=== PATIENT | male | born 1955 | race Caucasian/White ===

== ENCOUNTER 2019-05-02 06:08 | Inpatient (IN) ==
[2019-05-02 07:06] LABS: BASO# 0.01 X1000 (0.0-0.2); BASO% 0.1 % (0.0-0.8); EOS# 0.04 X1000 (0.0-0.7); EOS% 0.4 % (0.0-10.0); HEMATOCRIT 49.5 % (42.0-52.0); HEMOGLOBIN 17.4 g/dL (14.0-18.0); IMM GRAN# 0.02 X1000 (0.0-0.04); IMM GRAN% 0.2 % (0.0-0.5); LYMPH# 0.71 X1000 (1.2-3.4); LYMPH% 6.3 % (20.5-51.1); MCH 33.5 PG (27-31); MCHC 35.2 g/dL (33-37); MCV 95.2 FL (81-99); MONO# 1.11 X1000 (0.11-0.59); MONO% 9.8 % (1.7-9.3); NEUT# 9.41 X1000 (1.4-6.5); NEUT% 83.2 % (42.2-75.2); PLT 165 X1000 (130-400); RDW 12.1 % (11.5-14.5)
[2019-05-02 07:28] LABS: ESTIMATED GFR > 60
--- NOTE | 2019-05-02 07:29 | EKG Report ---
Test Performed on : 05/02/2019 06:23:12 AM Test Reason : pain Blood Pressure : / mmHG Vent. Rate : 104 BPM Atrial Rate : 081 BPM P-R Int : 000 ms QRS Dur : 096 ms QT Int : 364 ms P-R-T Axes : 000 -04 009 degrees QTc Int : 478 ms Atrial fibrillation. with rapid ventricular response. Incomplete right bundle branch block Nonspecific ST and T wave abnormality Abnormal ECG When compared with ECG of 13-MAR-2012 11:43, T wave inversion no longer evident in Anterolateral leads Unconfirmed Result
[2019-05-02 07:30] LABS: AGAP 23; ALB/GLOB RATIO 1.7; ALBUMIN 4.6 g/dL (3.5-5.0); ALKALINE PHOSPHATASE 79 U/L (32-122); BUN 14 mg/dL (8-22); CHLORIDE 89 mmol/L (98-107); COSMO 272; CREATININE 0.9 mg/dL (0.7-1.2); GLUCOSE 154 mg/dL (70-104); GOT 23 U/L (10-34); GPT 15 U/L (10-44); LIPASE 62 U/L (13-60); POTASSIUM 3.9 mmol/L (3.5-5.1); SODIUM 134 mmol/L (136-145); TCO2 22 mmol/L (25-35); TOTAL BILIRUBIN 1.65 mg/dL (0.20-1.00); TOTAL PROTEIN 7.3 g/dL (6.3-8.3)
[2019-05-02] MEDS ORDERED: DILAUDID IV ONE ×2 (07:31→09:37)
[2019-05-02] MEDS ORDERED: ZOFRAN IV ONE (07:31)
--- NOTE | 2019-05-02 07:32 | PROVIDER DOCUMENTATION ---
HPI-Abdominal Pain/GI Problem - General Chief Complaint: Abdominal Pain Stated Complaint: UPPER ABD PAIN,DIZZINESS Time Seen by Provider: 05/02/19 07:13 Source: patient Allergies/Adverse Reactions: Patient Allergies Allergy/AdvReac Type Severity Reaction Status Date / Time No Known Allergies Allergy Verified 05/02/19 06:29 Home Medications: Home Medication List Medication Instructions Recorded Confirmed Last Taken Type Lisinopril [Zestril] 10 mg PO BID 03/13/12 05/02/19 03/13/12 08:00 History Pradaxa 150 mg PO DAILY 03/13/12 05/02/19 03/13/12 12:00 History Amlodipine Besylate 5 mg PO DAILY 05/02/19 Unknown History Hydrocodone/Acetaminophen 10 mg PO TID 05/02/19 05/02/19 Unknown History [Hydrocodone-Acetamin 10-300 mg] Meloxicam [Mobic] 7.5 mg PO DAILY 05/02/19 05/02/19 Unknown History Metoprolol Succinate [Toprol Xl] 200 mg PO DAILY 05/02/19 05/02/19 Unknown History - History of Present Illness-ABD Nature of Presenting Problems: 64 y/o WM c/o upper abdomin epigastric pain for the last 2.5 days. He relates that he also stopped his pradaxa for the last 2 days. Pt has hx of a fib and is currently in a fib. Progress - PLAN OF CARE/RESULTS Progress/Plan/Lab Results: Vital Signs - 8 hr 05/02/19 06:10 Temperature 97.7 F Pulse Rate 100 H Respiratory Rate 20 Blood Pressure 142/89 O2 Sat by Pulse Oximetry 95 Laboratory Results - last 24 hr 05/02/19 05/02/19 06:42 06:42 WBC 11.30 H RBC 5.20 Hgb 17.4 Hct 49.5 MCV 95.2 MCH 33.5 H MCHC 35.2 RDW Std Deviation 12.1 Plt Count 165 MPV 11.0 H Immature Gran % (Auto) 0.2 Neut % (Auto) 83.2 H Lymph % (Auto) 6.3 L Craven % (Auto) 9.8 H Eos % (Auto) 0.4 Baso % (Auto) 0.1 Immature Gran # (Auto) 0.02 Neut # (Auto) 9.41 H Lymph # (Auto) 0.71 L Craven # (Auto) 1.11 H Eos # (Auto) 0.04 Baso # (Auto) 0.01 Estimated GFR/1.73 m2 > 60 Orders Category Date Time Status Saline Loc DIRECTED Care 05/02/19 06:15 Active NPO Diet 05/02/19 06:15 Active CBC WITH ELECTRONIC DIFF [HEME] Stat Lab 05/02/19 06:42 Completed COMPREHENSIVE METABOLIC PANEL [CHEM] Stat Lab 05/02/19 06:42 Results LIPASE [CHEM] Stat Lab 05/02/19 06:42 Results TROPONIN T Stat Lab 05/02/19 06:17 Received URINALYSIS W/POSS RFLX CULT [URINALYSIS] Stat Lab 05/02/19 06:15 Uncollected EKG [EKG] Stat Ther 05/02/19 06:14 Ordered EKG [EKG] Stat Ther 05/02/19 06:16 Ordered Result Diagrams: 05/02/19 06:42 05/02/19 06:42 Departure - Departure Referrals and Follow-Ups: None,PCP [Primary Care Provider] -
--- NOTE | 2019-05-02 07:52 | Diag Imaging Result Doc PS360 ---
CHEST-1 VIEW - 05/02/2019 INDICATION: atypical chest pain COMPARISON: 03/13/2012 FINDINGS: There is stable cardiomegaly. Pulmonary vascularity is grossly normal. No infiltrates or edema. No large pleural effusion. IMPRESSION: Mild cardiomegaly. Electronically signed by Yoni Martinez 05/02/2019 7:50 AM
--- NOTE | 2019-05-02 08:36 | Diag Imaging Result Doc PS360 ---
EXAM: CT ABD/PELVIS W/IV CONT ONLY 05/02/2019 HISTORY: epigastric abdo pain. TECHNIQUE: This exam was performed using automated exposure control, adjustment of mA or kV according to patient size, and/or use of iterative reconstruction technique. COMMENT: There is no evidence of acute disease in the visualized portion of the chest. There are no previous abdominal studies available for comparison. The abdominal aorta is partially calcified but not distended and the mesenteric and renal arteries are patent. There is no evidence of cholelithiasis. There is no evidence of hydronephrosis. There is an apparent stone in the lower pole of the left kidney measuring almost 5 mm in diameter. There are granulomata in the spleen. The spleen is not enlarged. The adrenal glands are not enlarged. There is stranding in the fat surrounding the pancreatic head. The common bile duct is distended measuring almost 10 mm in diameter. There is no definite evidence of a stone in the distal duct however there are calcifications in the pancreatic head. There is dilatation of the pancreatic duct in the tail proximal to a larger calcification seen best on image 51 of the portal venous phase. The pancreatic tail is atrophic in appearance. There is some stool in the colon. The small bowel is not distended. There is no evidence of significant adenopathy. Pelvis: There is diverticulosis in the distal descending and sigmoid colon without evidence of active diverticulitis. There is no evidence of free fluid. The urinary bladder and prostate are not enlarged. The appendix is normal in appearance. There is a right-sided hip prosthesis and degenerative changes in the left hip. There is vacuum phenomenon in the sacroiliac joints. There is degenerative disc and facet disease in the lumbar spine and there has been previous fusion in the lower lumbar spine with laminectomy at L4. IMPRESSION: Acute on chronic pancreatitis. Dilatation of the proximal pancreatic duct and the common bile duct. Left nephrolithiasis. Electronically signed by John Parra 05/02/2019 8:34 AM
[2019-05-02 09:13] LABS: URINE SOURCE CLEAN CATCH
[2019-05-02 09:14] LABS: BILIRUBIN URINE NEGATIVE (NEGATIVE); BLOOD URINE TRACE (NEGATIVE); COLOR YELLOW; GLUCOSE URINE NEGATIVE (NEGATIVE); KETONE URINE NEGATIVE (NEGATIVE); LEUKOCYTES URINE NEGATIVE (NEGATIVE); NITRITE URINE NEGATIVE (NEGATIVE); PROTEIN URINE 100 mg/dL (NEGATIVE); TURBIDITY URINE CLEAR (CLEAR); UROBILINOGEN URINE NORMAL (NORMAL)
[2019-05-02 09:14] LABS: INR 1.04; PROTIME 13.8 Seconds (11.0-16.0)
[2019-05-02 09:15] LABS: PTT 35.5 Seconds (22.3-41.8)
[2019-05-02 09:15] LABS: UR EPITHELIAL CELLS <10 /HPF (<10); URINE BACTERIA NEGATIVE /HPF; URINE RBC <10 /HPF (<10); URINE WBC <10 /HPF (<10)
[2019-05-02 09:30] LABS: SP GRAVITY URINE < 1.005
[2019-05-02] MEDS ORDERED: LOVENOX 1 MG/KG SUBQ ONE (09:50)
--- NOTE | 2019-05-02 10:10 | PROVIDER DOCUMENTATION ---
This chart was entered by Cece Chase Scribe, acting as scribe for Stone Osorio MD. HPI-Abdominal Pain/GI Problem - General Chief Complaint: Abdominal Pain Stated Complaint: UPPER ABD PAIN,DIZZINESS Time Seen by Provider: 05/02/19 07:13 Source: patient Allergies/Adverse Reactions: Patient Allergies Allergy/AdvReac Type Severity Reaction Status Date / Time No Known Allergies Allergy Verified 05/02/19 06:29 Home Medications: Home Medication List Medication Instructions Recorded Confirmed Last Taken Type Lisinopril [Zestril] 10 mg PO BID 03/13/12 05/02/19 03/13/12 08:00 History Pradaxa 150 mg PO DAILY 03/13/12 05/02/19 03/13/12 12:00 History Amlodipine Besylate 5 mg PO DAILY 05/02/19 Unknown History Hydrocodone/Acetaminophen 10 mg PO TID 05/02/19 05/02/19 Unknown History [Hydrocodone-Acetamin 10-300 mg] Meloxicam [Mobic] 7.5 mg PO DAILY 05/02/19 05/02/19 Unknown History Metoprolol Succinate [Toprol Xl] 200 mg PO DAILY 05/02/19 05/02/19 Unknown History - History of Present Illness-ABD Nature of Presenting Problems: 64 yom presents ot the ed with c/o epigastric pain with n/v x2 days. pt sts pain is worsening since onset and on wexam has mild epigastric tenderness Abdominal Pain Onset Location: reports: epigastric Pain Radiation: reports: no radiation Quality of Pain: reports: aching, cramping Severity in ED: reports: moderate Onset/Duration: reports: 2 days ago Timing: reports: still present, getting worse Activities at Onset: reports: light activity Exposure to sick contacts?: No Modifying Factors: improves with: nothing Associated Symptoms: reports: nausea, vomiting. denies: back/neck pain, chest pain, diarrhea, fever/chills, shortness of breath Last BM: last night Dark Stools Present?: reports: none noticed Rectal Bleeding: reports: none # of Diarrhea Episodes: 0 Rectal Pain: reports: none # of Vomiting Episodes: 4 Bruising or Bleeding Gums?: No Similar Symptoms Previously?: No Recently seen or treated by another doctor?: No Review of Systems - Adult - REVIEW OF SYSTEMS - ADULT Constitutional: reports: see HPI. denies: chills, fever Eyes: reports: no symptoms reported Ears, Nose, Mouth & Throat: reports: no symptoms reported Cardiovascular: reports: see HPI. denies: chest pain, palpitations, syncope Respiratory: reports: see HPI. denies: cough, shortness of breath, wheezing Gastrointestinal: reports: see HPI, abdominal pain, nausea, vomiting. denies: diarrhea Genitourinary: reports: no symptoms reported, see HPI Musculoskeletal: reports: see HPI. denies: back pain, neck pain Integumentary: reports: no symptoms reported, see HPI Neurological: reports: see HPI. denies: dizziness/vertigo, headache/migraines Psychiatric: reports: no symptoms reported, see HPI Endocrine: reports: no symptoms reported, see HPI Hematologic/Lymphatic: reports: no symptoms reported Allergic/Immunologic: reports: no symptoms reported All Other Systems: Reviewed and Negative Past History - Adult - PAST MEDICAL HISTORY-ADULT Review of Records: reports: Nursing Assessment Review, Medications Reviewed, Social history reviewed & non-contributory. Physical Exam-General - PHYSICAL EXAM-ADULT Initial Vital Signs Reviewed: Yes - CONSTITUTIONAL General Appearance: appears well, alert, mild distress - EYES Eyes: PERRL/EOMI, pink conjunctivae - HEAD, EARS, NOSE, MOUTH & THROAT HENMT: moist mucous membranes, normal ENT inspection - NECK Neck: non-tender, full range of motion, supple, normal inspection - RESPIRATORY Respiratory: chest non-tender, lungs clear, normal breath sounds - CARDIOVASCULAR Cardiovascular: normal peripheral pulses, irregularly irregular (in afib has been unable to take afib medications) - GASTROINTESTINAL (ABDOMEN) Abdominal Exam: normal bowel sounds, soft, tenderness (epigastric). negative: distended, guarding, rigid - LYMPHATIC Lymphatic: no adenopathy - MUSCULOSKELETAL Back Exam: normal inspection, no CVA tenderness, no vertebral tenderness Extremity: normal range of motion, non-tender, normal gait, normal inspection - SKIN Integumentary: normal color, normal turgor - NEUROLOGIC Neurologic: grossly normal - PSYCHIATRIC Psych/Mental Status: normal mood/affect, normal thought content, normal thought process, oriented x 3 Progress - PLAN OF CARE/RESULTS Progress/Plan/Lab Results: Vital Signs - 8 hr 05/02/19 06:10 Temperature 97.7 F Pulse Rate 100 H Respiratory Rate 20 Blood Pressure 142/89 O2 Sat by Pulse Oximetry 95 Laboratory Results - last 24 hr 05/02/19 05/02/19 05/02/19 06:17 06:17 06:42 WBC 11.30 H RBC 5.20 Hgb 17.4 Hct 49.5 MCV 95.2 MCH 33.5 H MCHC 35.2 RDW Std Deviation 12.1 Plt Count 165 MPV 11.0 H Immature Gran % (Auto) 0.2 Neut % (Auto) 83.2 H Lymph % (Auto) 6.3 L Gregg % (Auto) 9.8 H Eos % (Auto) 0.4 Baso % (Auto) 0.1 Immature Gran # (Auto) 0.02 Neut # (Auto) 9.41 H Lymph # (Auto) 0.71 L Gregg # (Auto) 1.11 H Eos # (Auto) 0.04 Baso # (Auto) 0.01 PT 13.8 INR 1.04 PTT (Actin FS) 35.5 Sodium Potassium Chloride Carbon Dioxide Anion Gap BUN Creatinine Estimated GFR/1.73 m2 BUN/Creatinine Ratio Glucose Calculated Osmolality Calcium Total Bilirubin AST ALT Alkaline Phosphatase Troponin T < 0.010 Total Protein Albumin Globulin Albumin/Globulin Ratio Lipase Urine Source Urine Color Urine Turbidity Urine pH Ur Specific Lincoln Urine Protein Ur Glucose (Stick) Ur Ketones (Stick) Urine Blood Urine Nitrite Urine Bilirubin Urobilinogen Dipstick Urine Leukocytes Urine WBC (Auto) Urine RBC (Auto) U Epithel Cells (Auto) Urine Bacteria (Auto) 05/02/19 05/02/19 06:42 09:02 WBC RBC Hgb Hct MCV MCH MCHC RDW Std Deviation Plt Count MPV Immature Gran % (Auto) Neut % (Auto) Lymph % (Auto) Gregg % (Auto) Eos % (Auto) Baso % (Auto) Immature Gran # (Auto) Neut # (Auto) Lymph # (Auto) Gregg # (Auto) Eos # (Auto) Baso # (Auto) PT INR PTT (Actin FS) Sodium 134 L Potassium 3.9 Chloride 89 L Carbon Dioxide 22 L Anion Gap 23 BUN 14 Creatinine 0.9 Estimated GFR/1.73 m2 > 60 BUN/Creatinine Ratio 16 Glucose 154 H Calculated Osmolality 272 Calcium 10.0 Total Bilirubin 1.65 H AST 23 ALT 15 Alkaline Phosphatase 79 Troponin T Total Protein 7.3 Albumin 4.6 Globulin 2.7 Albumin/Globulin Ratio 1.7 Lipase 62 H Urine Source CLEAN CATCH Urine Color YELLOW Urine Turbidity CLEAR Urine pH 7.0 Ur Specific Lincoln < 1.005 Urine Protein 100 A Ur Glucose (Stick) NEGATIVE Ur Ketones (Stick) NEGATIVE Urine Blood TRACE A Urine Nitrite NEGATIVE Urine Bilirubin NEGATIVE Urobilinogen Dipstick NORMAL Urine Leukocytes NEGATIVE Urine WBC (Auto) <10 Urine RBC (Auto) <10 U Epithel Cells (Auto) <10 Urine Bacteria (Auto) NEGATIVE Orders Category Date Time Status Saline Loc DIRECTED Care 05/02/19 06:15 Active NPO Diet 05/02/19 06:15 Active CHEST-1 VIEW [RAD] Stat Exams 05/02/19 07:[address] ABD/PELVIS W/IV CONT ONLY [CT] Stat Exams 05/02/19 07:30 Completed US GB < RUQ (LIMITED) [US] Stat Exams 05/02/19 09:38 Ordered CBC WITH ELECTRONIC DIFF [HEME] Stat Lab 05/02/19 06:42 Completed CHOLESTEROL [LIPIDS] Stat Lab 05/02/19 10:00 Uncollected COMPREHENSIVE METABOLIC PANEL [CHEM] Stat Lab 05/02/19 06:42 Completed LIPASE [CHEM] Stat Lab 05/02/19 06:42 Completed PROTIME WITH INR [COAG] Stat Lab 05/02/19 06:17 Completed PTT [COAG] Stat Lab 05/02/19 06:17 Completed TROPONIN T Stat Lab 05/02/19 06:17 Completed URINALYSIS W/POSS RFLX CULT [URINALYSIS] Stat Lab 05/02/19 09:02 Completed Enoxaparin 1 mg/kg [Lovenox 1 mg/kg] Med 05/02/19 09:50 Discontinued 1 each SUBQ NOW ONE Hydromorphone [Dilaudid] Med 05/02/19 07:31 Discontinued 0.5 mg IV NOW ONE Hydromorphone [Dilaudid] Med 05/02/19 09:37 Discontinued 0.5 mg IV NOW ONE Ondansetron [Zofran] Med 05/02/19 07:31 Discontinued 4 mg IV NOW ONE EKG [EKG] Stat Ther 05/02/19 06:14 Ordered EKG [EKG] Stat Ther 05/02/19 06:16 Draft Result Diagrams: 05/02/19 06:42 05/02/19 06:42 - REASSESSMENT Reassessment #1 Time Reassessed: 09:46 Status: improving - XRAY 1 XRAY: Bilateral XRAY Study: Chest Impression: See EMR Report (CHEST-1 VIEW - 05/02/2019 INDICATION: atypical ham[place] st pain COMPARISON: 03/13/2012 FINDINGS: There is stable cardiomegaly. Pulmonary vascularity is grossly normal. No infiltrates or edema. No large pleural effusion. IMPRESSION: Mild cardiomegaly. Electronically signed by Yoni Martinez 05/02/2019 7:50 AM 05/02/19 2400 Interpreting Physician: Yoni Martinez MD Dictated Date/Time: 05/02/19 1807 cc: Stone Osorio MD; None,PCP) - CT/MRI 1 CT Study: Abdomen, Pelvis Impression: See EMR Report (EXAM: CT ABD/PELVIS W/IV CONT ONLY 05/02/2019 HIST ORY: epigastric abdo pain. TECHNIQUE: This exam was performed using automated exposure control, adjustment of mA or kV according to patient size, and/or use of iterative reconstruction technique. COMMENT: There is no evidence of acute disease in the visualized portion of the chest. There are no previous abdominal studies available for comparison. The abdominal aorta is partially calcified but not distended and the mesenteric and renal arteries are patent. There is no evidence of cholelithiasis. There is no evidence of hydronephrosis. There is an apparent stone in the lower pole of the left kidney measuring almost 5 mm in diameter. There are granulomata in the spleen. The spleen is not enlarged. The adrenal glands are not enlarged. There is stranding in the fat surrounding the pancreatic head. The common bile duct is distended measuring almost 10 mm in diameter. There is no definite evidence of a stone in the distal duct however there are calcifications in the pancreatic head. There is dilatation of the pancreatic duct in the tail proximal to a larger calcification seen best on im age 51 of the portal venous phase. The pancreatic tail is atrophic in appearance. There is some stool in the colon. The small bowel is not distended. There is no evidence of significant adenopathy. Pelvis: There is diverticulosis in the distal descending and sigmoid colon without evidence of active diverticulitis. There is no evidence of free fluid. The urinary bladder and prostate are not enlarged. The appendix is normal in appearance. There is a right-sided hip prosthesis and degenerative changes in the left hip. There is vacuum phenomenon in the sacroiliac joints. There is degenerative disc and facet disease in the lumbar spine and there has been previous fusion in the lower lumbar spine with laminectomy at L4. IMPRESSION: Acute on chronic pancreatitis. Dilatation of the proximal pancreatic duct and the common bile duct. Left nephrolithiasis. Electronically signed by John Parra 05/02/2019 8:34 AM 05/02/19 0834 Interpreting Physician: John Parra MD Dictated Date/Time: 05/02/19 0828 cc: Stone Osorio MD; None,PCP) - ULTRASOUND (By Radiology) 1 US Study: Gallbladder Impression: See EMR Report (US GB < RUQ (LIMITED) - 05/02/2019 INDICATION: ruq pain TECHNIQUE: COMPARISON: CT from 05/02/2019 FINDINGS: The gallbladder is somewhat distended measuring about 12 x 4.2 cm. No gallstones, wall thickening, or surrounding free fluid. The common bile duct is dilated measuring about 9 mm. No shadowing stones. The pancreas is mostly obscured. No fluid collections. The right kidney is normal. Aorta, IVC, and main portal vein are patent. IMPRESSION: 1. Distended gallbladder with dilation of the common bile duct. This may indicate a distal obstruction. 2. Pancreas is obscured. Electronically signed by Yoni Martinez 05/02/2019 10:39 AM 05/02/19 1039 Interpreting Physician: Yoni Martinez MD Dictated Date/Time: 05/02/19 1036 cc: Stone Osorio MD; None,PCP) - CONSULTS/PCP/HOSPITALIST Notification #1 *Consult/PCP/Hospitalist*: Hospitalist Dr Hickman / Shahnaz ARCHIBALD Time Discussed: 10:01 Consult Disposition: Will see in ED, Admit Departure - Departure Date of Disposition Decision: 05/02/19 Time of Disposition Decision: 10:07 DIAGNOSIS: Acute pancreatitis, Elevated bilirubin Disposition: ADMITTED INPATIENT 09 Certified Medical Emergency: Emergent Condition: Fair Referrals and Follow-Ups: None,PCP [Primary Care Provider] - - Critical Care Note This patient required my direct & personal management of CC.: No Attestation - Physician/ GALDINO Attestation Patient care was provided by Advanced Practice Provider:: No The physician spent face to face time with patient:: Yes Advanced Practice Provider documentation review:: Supervising physician onsite and consulted in the evaluation and care of this patient. The physician did have a face to face encounter with the patient. This chart was documented by the indicated scribe, (Cece Chase Scribe) and accurately reflects the services I performed and decisions made by me, Stone Osorio MD, as attested by the provider's signature.
[2019-05-02] MEDS ORDERED: TYLENOL PO PRN (10:22)
[2019-05-02] MEDS ORDERED: ZOFRAN IV PRN (10:22)
--- NOTE | 2019-05-02 10:42 | Diag Imaging Result Doc PS360 ---
US GB < RUQ (LIMITED) - 05/02/2019 INDICATION: ruq pain TECHNIQUE: COMPARISON: CT from 05/02/2019 FINDINGS: The gallbladder is somewhat distended measuring about 12 x 4.2 cm. No gallstones, wall thickening, or surrounding free fluid. The common bile duct is dilated measuring about 9 mm. No shadowing stones. The pancreas is mostly obscured. No fluid collections. The right kidney is normal. Aorta, IVC, and main portal vein are patent. IMPRESSION: 1. Distended gallbladder with dilation of the common bile duct. This may indicate a distal obstruction. 2. Pancreas is obscured. Electronically signed by Yoni Martinez 05/02/2019 10:39 AM
[2019-05-02 11:14] LABS: HEMOGLOBIN A1C 5.5 % (4.8-6.0)
[2019-05-02] MEDS ORDERED: LOVENOX SUBQ ONE (11:15)
[2019-05-02 11:33] LABS: FREE T4 1.63 ng/dL (0.93-1.70); TSH 2.56 uIUmL (0.27-4.20)
[2019-05-02] MEDS: NS 1,000 ML IV SCH ×2 (11:53→21:22)
[2019-05-02] MEDS: MORPHINE IV PRN ×3 (12:25→22:34)
[2019-05-02] MEDS: SODIUM CHLORIDE 0.9% INJ PRN ×2 (12:26→18:00)
[2019-05-02] MEDS: PHENERGAN IV PRN ×2 (12:26→18:00)
--- NOTE | 2019-05-02 12:46 | HISTORY AND PHYSICAL ---
HISTORY OF PRESENT ILLNESS: Mr. Landry states that today is Wednesday and I think starting on Wednesday, he started getting nauseated, epigastric pain had just intensified, and came in. Results of workup showed he has pancreatitis. He has never had this before. He does drink heavy on the weekend but does not drink much during the week by his report. 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 Denies fever or chills. Denies any change in his medication. He has chronic lower back pain with right footdrop and he is followed mainly at [facility] in [place] for chronic pain. He has a history of hypertension, history of hypercholesterolemia. ALLERGIES: He has no known drug allergies. FAMILY HISTORY: No family history of heart problems, pancreatic problems, or renal problems that he is aware of. MEDICATIONS: At home, he is on Pradaxa 150 mg p.o. daily, amlodipine 5 mg a day, hydrocodone 10 mg t.i.d., Zestril 10 mg b.i.d., Mobic 7.5 mg a day, and Toprol-XL 200 mg p.o. daily. He is followed by Dr. White for his hypertension. PAST SURGICAL HISTORY: The only surgeries he mentioned were on his back. He has had 3 back surgeries, he said, and it sounds like decompressive surgeries. He has a right footdrop following one of his surgeries. REVIEW OF SYSTEMS: General: No weight gain or loss. No fever or chills. HEENT: Unremarkable. Respiratory: No increased work of breathing or dyspnea. Cardiovascular: No chest pain or tachy palpitations. GI and Genitourinary: No gross hematuria or dysuria. Musculoskeletal and Neurologic: No focal complaints. Endocrinologic/Hematologic: No significant history. PHYSICAL EXAMINATION: VITAL SIGNS: He is afebrile. Temperature 97.7 degrees, pulse 120, respirations 17, blood pressure 137/110. HEENT: Pupils are equal and round. LUNGS: Clear in all lung paige. CARDIOVASCULAR EXAMINATION: Regular rhythm and rate without murmur or S3. ABDOMEN: Soft, nondistended. He is tender in the epigastrium and left upper quadrant, quite tender. SKIN: Warm and dry. No rashes. Oral and nasal mucosa without any lesions. NECK: Supple without adenopathy or thyromegaly. Weight is 250 pounds, height 6 feet 3 inches. LABORATORY DATA: White count 11,300, hematocrit 49, platelet count 165,000. Sodium 134, potassium 3.9, chloride 89, BUN 15, creatinine 0.9, blood sugar 154, hemoglobin A1c 5.5, calcium is 10. AST 23, ALT was 15, alkaline phosphatase 79. Troponin was less than 0.01. Albumin 4.6. Cholesterol 213. Lipase was 62. Vitamin B12 was 407. TSH is 2.56, T4 is 1.63. Prothrombin time was 13.8, PTT 35. Urinalysis unremarkable. His chest x-ray, mild cardiomegaly. Abdominal ultrasound, pancreatitis appreciated, distended gallbladder with dilatation of common bile duct. This may indicate a distal obstruction. Abdominal and pelvic CT, acute on chronic pancreatitis, dilatation of proximal pancreatic duct, common bile duct, and left nephrolithiasis. ASSESSMENT AND PLAN: 1. Acute pancreatitis and possibly biliary. His ultrasound suggests a dilated gallbladder with dilatation of the common bile duct. We will ask general surgery to see. Dr. Roque Liang I believe is on-call today. We will hold him nothing per oral, give him some intravenous fluids and antiemetics as needed. 2. History of alcohol, sounds like it is mainly on the weekends. I think there is low potential for withdrawal symptoms but obviously discussed the need to stay off of alcohol. 3. Hypertension. We will watch his blood pressure. 4. Chronic lower back pain. Continue his current medications. Note, he is on Pradaxa 150 mg a day. I need to question him why he is on that and we will hold that for now. REVIEW OF HIS LAB: Blood counts look okay. Renal function looks good. We will give him some normal saline at 85 mL an hour. Note that his lipase was 62 which is not real impressive. cc: Kevin Hickman MD
[2019-05-02] MEDS ORDERED: SODIUM CHLORIDE 0.9% INJ SCH (14:10)
[2019-05-02 15:00] LABS: INR 1.17; PROTIME 15.1 Seconds (11.0-16.0)
[2019-05-02 15:01] LABS: PTT 43.2 Seconds (22.3-41.8)
[2019-05-02] MEDS: PROTONIX IV SCH (15:03)
[2019-05-02] MEDS: NORCO-7.5 PO PRN ×2 (15:03→21:21)
[2019-05-02] MEDS: PRINIVIL PO SCH (21:22)
[2019-05-03] MEDS: MORPHINE IV PRN ×3 (03:05→16:21)
[2019-05-03] MEDS: TOPROL XL PO SCH ×2 (03:08→09:48)
[2019-05-03] MEDS: NS 1,000 ML IV SCH ×4 (03:09→21:17)
[2019-05-03] MEDS: PROTONIX IV SCH ×2 (03:09→14:16)
[2019-05-03] MEDS: NORCO-7.5 PO PRN ×2 (03:24→21:32)
--- NOTE | 2019-05-03 03:45 | EKG Report ---
Test Performed on : 05/03/2019 03:39:39 AM Test Reason : elevated heart rate Blood Pressure : / mmHG Vent. Rate : 106 BPM Atrial Rate : 087 BPM P-R Int : 000 ms QRS Dur : 094 ms QT Int : 328 ms P-R-T Axes : 000 -04 -49 degrees QTc Int : 435 ms Atrial fibrillation. with rapid ventricular response. with premature ventricular or aberrantly conduc mary complexes. Incomplete right bundle branch block Nonspecific ST and T wave abnormality Abnormal ECG When compared with ECG of 02-MAY-2019 06:23, (Unconfirmed) Nonspecific T wave abnormality now evident in Lateral leads Confirmed by Brea VAUGHAN, Epifanio ([id number]) on 05/03/2019 8:52:09 AM
[2019-05-03 04:22] LABS: BASO# 0.02 X1000 (0.0-0.2); BASO% 0.2 % (0.0-0.8); EOS# 0.08 X1000 (0.0-0.7); EOS% 0.9 % (0.0-10.0); HEMATOCRIT 41.8 % (42.0-52.0); HEMOGLOBIN 14.9 g/dL (14.0-18.0); IMM GRAN# 0.03 X1000 (0.0-0.04); IMM GRAN% 0.3 % (0.0-0.5); LYMPH# 0.68 X1000 (1.2-3.4); LYMPH% 7.2 % (20.5-51.1); MCH 34.8 PG (27-31); MCHC 35.6 g/dL (33-37); MCV 97.7 FL (81-99); MONO# 1.24 X1000 (0.11-0.59); MONO% 13.2 % (1.7-9.3); MPV 10.8 FL (7.4-10.4); NEUT# 7.35 X1000 (1.4-6.5); NEUT% 78.2 % (42.2-75.2); PLT 146 X1000 (130-400); RBC 4.28 XMIL (4.7-6.1); RDW 12.4 % (11.5-14.5)
[2019-05-03 04:55] LABS: AGAP 18; ALB/GLOB RATIO 1.3; ALBUMIN 3.6 g/dL (3.5-5.0); ALKALINE PHOSPHATASE 60 U/L (32-122); AMYLASE 78 U/L (20-200); BUN 17 mg/dL (8-22); CALCIUM 8.9 mg/dL (8.8-10.2); CHLORIDE 95 mmol/L (98-107); COSMO 273; CREATININE 0.8 mg/dL (0.7-1.2); ESTIMATED GFR > 60; GLUCOSE 126 mg/dL (70-104); GOT 18 U/L (10-34); GPT 11 U/L (10-44); LIPASE 54 U/L (13-60); MAGNESIUM 1.6 mg/dL (1.5-2.7); POTASSIUM 4.2 mmol/L (3.5-5.1); SODIUM 135 mmol/L (136-145); TCO2 22 mmol/L (25-35); TOTAL BILIRUBIN 1.34 mg/dL (0.20-1.00); TOTAL PROTEIN 6.4 g/dL (6.3-8.3)
--- NOTE | 2019-05-03 07:21 | GENERAL SURGERY CONSULTATION ---
DATE: 05/02/2019 CHIEF COMPLAINT: Abdominal pain. REASON FOR CONSULTATION: Pancreatitis and gallstones. HISTORY OF PRESENT ILLNESS: This is a 64-year-old gentleman, who presented with a several-day history of epigastric abdominal pain radiating to his back. He said he had a similar episode in the past that resolved spontaneously. [facility] pain related to lower back and knee and hip surgeries. He does have chronic foot drop as well. He drinks a 6- pack on the weekend, but does not drink daily. He is a basin finish operator tig welder. He does smoke. Workup in the emergency department showed CT findings consistent with pancreatitis without complication, but there are calcifications to suggest a chronic process, some dilation of the pancreatic and bile duct, and ultrasound showed gallstones with a 9 mm common bile duct. PAST MEDICAL HISTORY: Chronic pain, hypertension. He takes Pradaxa for some unclear reason. PAST SURGICAL HISTORY: He has had multiple back operations resulting in footdrop, and also hip or knee replacement. FAMILY HISTORY: Significant for lung cancer. REVIEW OF SYSTEMS: A 10-point review of systems is negative unless otherwise mentioned in the HPI. PHYSICAL EXAMINATION: Vital Signs: He is afebrile, pulse 102, blood pressure 161/101, oxygen saturation 96% on room air. General: He is alert. HEENT: No scleral icterus. No cervical mass. Cardiovascular: Normal rate. Pulmonary: No increased work of breathing. Abdomen: Soft, protuberant, and obese. There is an umbilical hernia that is reducible, but subjective tenderness. No peritonitis. Integumentary: Warm and dry without jaundice. Psychiatric: Appropriate affect. Neurologic: I believe he has a left footdrop. He does have an ankle foot orthotic to assist with this. Peripheral Vascular: No lower extremity. IMAGING AND LABORATORY DATA: White count 11, hematocrit 49, platelets 165,000. INR is 1.17. Creatinine is 0.9. Bilirubin is mildly elevated at 1.65. AST, ALT, and alkaline phosphatase are normal. Troponins are normal. Lipase was mildly elevated at 62. Urinalysis with trace blood, but negative for nitrites and leukocytes. I reviewed his CT scan and his ultrasound. ASSESSMENT AND PLAN: A 64-year-old gentleman with pancreatitis, most likely gallstone in etiology. I have recommended bowel rest, intravenous fluids, and serial liver function tests and lipases. Will allow his pancreatitis episode to resolve. I do think he has some changes consistent with chronic pancreatitis, but I do not see any evidence of acute complication, necrosis, or pseudocysts. Will plan for cholecystectomy prior to discharge to hopefully prevent further episodes. I have discussed with the patient, but currently his risk of associated complication would be high in the setting of acute pancreatitis. Will follow along. I would recommend holding his Pradaxa. cc: Gaurav Liang MD
[2019-05-03] MEDS: PRINIVIL PO SCH ×2 (08:29→21:18)
[2019-05-03] MEDS: MOBIC PO SCH (08:29)
[2019-05-03] MEDS ORDERED: PRADAXA PO SCH (09:00)
--- NOTE | 2019-05-03 14:37 | GENERAL SURGERY PROGRESS NOTE ---
DATE: 05/03/2019 SUBJECTIVE: Still having quite a lot of pain overnight. He had an episode of atrial fibrillation with rapid ventricular response. OBJECTIVE: General: On exam he is alert. HEENT: No scleral icterus. Integument: No jaundice. Cardiovascular: Still seems to be in atrial fibrillation, but at a more normal rate in the 110s. Blood pressure 154/99. Abdomen: His abdomen is soft, nontender, nondistended. LABS: White count is 9, hematocrit 41, creatinine 0.8. Bilirubin is down to 1.34, AST, ALT and alkaline phosphatase are normal. Lipase is now normal at 54. ASSESSMENT/PLAN: This is a 64 year old gentleman with chronic pancreatitis with an acute exacerbation, most likely gallstone etiology, possibly component of alcohol. I will allow his current episode of pancreatitis resolve. He is still having quite a lot of pain and plan for a cholecystectomy prior to discharge to hopefully prevent further episodes. I discussed with the patient. Otherwise, will continue bowel rest, IV fluids. cc: Gaurav Liang MD
--- NOTE | 2019-05-03 17:30 | PROGRESS NOTE ---
DATE: 05/03/2019 SUBJECTIVE: Mr. Landry reports that he is a little better, a little less pain. OBJECTIVE: Vital signs: Temp is 99.0 degrees, pulse 89, respirations 12, blood pressure 154/81. HEENT: Pupils are equal and round. Lungs: Clear in all lung paige. Cardiovascular: Regular rhythm and rate without murmur or S3. Abdomen: Soft. Skin: Warm and dry. LAB: Lipase is 54, amylase is 78. Blood count 9,400, hematocrit 41, platelet count 146,000. ASSESSMENT AND PLAN: A 64-year-old gentleman with chronic pancreatitis and acute exacerbation, most likely gallstone etiology, possibly a component of alcohol. Will allow this current episode resolve. He is in quite a lot of pain. Plan is for a cholecystectomy prior to discharge. Hopefully prevent further episodes. REVIEW OF ORDERS: I do not see any change. cc: Kevin Hickman MD
[2019-05-03] MEDS: PHENERGAN IV PRN (21:32)
[2019-05-04] MEDS: PROTONIX IV SCH ×2 (02:04→14:10)
[2019-05-04] MEDS: NS 1,000 ML IV SCH ×3 (02:05→19:01)
[2019-05-04] MEDS: PHENERGAN IV PRN (06:07)
[2019-05-04 08:06] LABS: BASO# 0.03 X1000 (0.0-0.2); BASO% 0.4 % (0.0-0.8); EOS# 0.17 X1000 (0.0-0.7); EOS% 2.2 % (0.0-10.0); HEMATOCRIT 44.4 % (42.0-52.0); HEMOGLOBIN 15.1 g/dL (14.0-18.0); LYMPH# 0.91 X1000 (1.2-3.4); LYMPH% 11.6 % (20.5-51.1); MCH 33.8 PG (27-31); MCV 99.3 FL (81-99); MONO# 1.11 X1000 (0.11-0.59); MONO% 14.1 % (1.7-9.3); MPV 10.7 FL (7.4-10.4); NEUT# 5.65 X1000 (1.4-6.5); NEUT% 71.7 % (42.2-75.2); PLT 140 X1000 (130-400); RBC 4.47 XMIL (4.7-6.1); RDW 12.1 % (11.5-14.5); WBC 7.87 X1000 (4.8-10.8)
[2019-05-04 08:35] LABS: AGAP 16; ALB/GLOB RATIO 1.2; ALBUMIN 3.6 g/dL (3.5-5.0); ALKALINE PHOSPHATASE 65 U/L (32-122); BUN 17 mg/dL (8-22); CALCIUM 9.2 mg/dL (8.8-10.2); CHLORIDE 98 mmol/L (98-107); COSMO 279; CREATININE 0.8 mg/dL (0.7-1.2); ESTIMATED GFR > 60; GLUCOSE 98 mg/dL (70-104); GOT 19 U/L (10-34); GPT 11 U/L (10-44); MAGNESIUM 1.6 mg/dL (1.5-2.7); POTASSIUM 4.3 mmol/L (3.5-5.1); SODIUM 139 mmol/L (136-145); TCO2 25 mmol/L (25-35); TOTAL BILIRUBIN 1.31 mg/dL (0.20-1.00); TOTAL PROTEIN 6.5 g/dL (6.3-8.3)
[2019-05-04] MEDS: TOPROL XL PO SCH (09:02)
[2019-05-04] MEDS: PRINIVIL PO SCH ×2 (09:03→21:26)
[2019-05-04] MEDS: MOBIC PO SCH (09:03)
--- NOTE | 2019-05-04 09:52 | PROGRESS NOTE ---
DATE: 05/04/2019 SUBJECTIVE: Mr. Landry is feeling a little better, a little less pain but still pretty uncomfortable. OBJECTIVE: Temperature 97.5 degrees, remains afebrile, pulse 80, respirations 18, blood pressure 168/97. Pupils are equal and round. Lungs are clear in all lung paige. Cardiovascular Examination: Regular rhythm and rate without murmur or S3. Urine output is 2800 mL. ASSESSMENT AND PLAN: A 64-year-old gentleman with chronic pancreatitis, acute exacerbation, most likely gallstone etiology, possibly a component of alcohol. Currently in still a lot of pain. His plan is for a cholecystectomy prior to discharge so we are going to continue nothing per oral. Continue current medication. He is getting Prinivil 10 mg twice a day, Mobic 7.5 mg daily, metoprolol succinate 200 mg by mouth daily, normal saline at 125 mL an hour, Protonix 40 mg intravenous every 12 hours, and getting normal saline at 125 mL an hour. cc: Kevin Hickman MD
[2019-05-05] MEDS: PROTONIX IV SCH (02:20)
--- NOTE | 2019-05-05 02:48 | GENERAL SURGERY PROGRESS NOTE ---
DATE: 05/04/2019 SUBJECTIVE: He is still having epigastric pain radiating to his back. No fevers. OBJECTIVE: Vital signs: Pulse 85, blood pressure 157/90, oxygen saturation 98%. General: Alert. HEENT: No scleral icterus. Cardiovascular: Normal rate. Abdomen: Soft, nontender, nondistended. LABORATORY DATA: White count 7, hematocrit 44. Creatinine 0.8. Bilirubin is down 1.31, AST, ALT and alkaline phosphatase normal. ASSESSMENT/PLAN: A 64-year-old gentleman with most likely gallstone pancreatitis. He is still having some symptoms of pancreatitis, although biochemically it seems to be improving. We will plan for cholecystectomy to prevent future episodes, but we need to allow his current symptoms to resolve. He can have low volume clear liquids. We will follow him. If he is doing better tomorrow we may schedule this early next week versus allowing this to resolve and dealing with it as an inpatient. I have discussed with the patient. He understands and consents. cc: Gaurav Liang MD
[2019-05-05] MEDS: NS 1,000 ML IV SCH ×2 (03:44→09:55)
[2019-05-05 07:10] LABS: BASO# 0.04 X1000 (0.0-0.2); BASO% 0.6 % (0.0-0.8); EOS# 0.23 X1000 (0.0-0.7); EOS% 3.3 % (0.0-10.0); HEMATOCRIT 42.7 % (42.0-52.0); HEMOGLOBIN 14.6 g/dL (14.0-18.0); IMM GRAN# 0.02 X1000 (0.0-0.04); IMM GRAN% 0.3 % (0.0-0.5); LYMPH% 14.2 % (20.5-51.1); MCH 33.6 PG (27-31); MCHC 34.2 g/dL (33-37); MCV 98.4 FL (81-99); MONO# 1.22 X1000 (0.11-0.59); MONO% 17.4 % (1.7-9.3); MPV 10.7 FL (7.4-10.4); NEUT# 4.51 X1000 (1.4-6.5); NEUT% 64.2 % (42.2-75.2); PLT 149 X1000 (130-400); RBC 4.34 XMIL (4.7-6.1); WBC 7.02 X1000 (4.8-10.8)
[2019-05-05 07:53] LABS: AGAP 14; ALBUMIN 3.2 g/dL (3.5-5.0); ALKALINE PHOSPHATASE 62 U/L (32-122); BUN 19 mg/dL (8-22); CALCIUM 9.4 mg/dL (8.8-10.2); CHLORIDE 97 mmol/L (98-107); COSMO 275; CREATININE 0.8 mg/dL (0.7-1.2); ESTIMATED GFR > 60; GLUCOSE 109 mg/dL (70-104); GOT 16 U/L (10-34); GPT 12 U/L (10-44); MAGNESIUM 1.5 mg/dL (1.5-2.7); POTASSIUM 4.2 mmol/L (3.5-5.1); SODIUM 136 mmol/L (136-145); TCO2 25 mmol/L (25-35); TOTAL BILIRUBIN 0.82 mg/dL (0.20-1.00); TOTAL PROTEIN 6.4 g/dL (6.3-8.3)
[2019-05-05] MEDS: MOBIC PO SCH (10:01)
[2019-05-05] MEDS: PRINIVIL PO SCH (10:01)
[2019-05-05] MEDS: TOPROL XL PO SCH (10:01)
[2019-05-05 11:42] VITALS: BP 141/101
--- NOTE | 2019-05-05 14:13 | DISCHARGE SUMMARY ---
ADMISSION DATE: 05/02/2019 DISCHARGE DATE: 05/05/2019 This is a 64-year-old states that a couple days before he started this was Wednesday and admitted him on Wednesday, he started having nausea, epigastric pain intensified and when he came to the emergency room had evidence of acute pancreatitis. He is a electric arc welder by trade. Denied any fever or chills. He has had chronic lower back pain. Medication he was on he was on Pradaxa and amiodarone, hydrocodone, Zestril, Mobic and Toprol-XL so admitted with acute pancreatitis. Ultrasound suggested dilated gallbladder and dilatation common bile duct. Dr. Roque Liang evaluated. He was kept NPO and seemed to show improvement. Abdominal and pelvic CT, acute on chronic pancreatitis, dilatation of proximal pancreatic duct and common bile duct, left nephrolithiasis nonobstructive. Abdominal ultrasound on 05/02, distended gallbladder, dilatation of common bile duct may indicate distal obstruction. Pancreas was obscured Dr. Liang most likely gallstone etiology and he continued to show improvement. [place] like he could go home on 05/05/2019. Plan is for him to come back in 1 week on Wednesday and get his cholecystectomy. Still has some symptoms of pancreatitis but biochemically seems to be improving so plan to let him go home. He will come back on Wednesday. Want him to stay with very bland soft diet and will get him his. DISCHARGE MEDICATIONS: I will give him some [place] 7.5 q.4 hours p.r.n. I will give 20 of them, Prinivil 10 mg b.i.d., Mobic 7.5 mg daily, Toprol-XL 20 mg daily and I will give him some Protonix which he will take 40 mg twice a day for the next 4 weeks. I am going to have him hold his Pradaxa. cc: Kevin Hickman MD
--- NOTE | 2019-05-06 01:31 | GENERAL SURGERY PROGRESS NOTE ---
DATE: 05/05/2019 SUBJECTIVE: He feels well. He is tolerating clear liquids. His bowels are functioning. He has no more abdominal pain. No fevers. No tachycardia. OBJECTIVE: Blood pressure 141/101. General: He is alert. HEENT: No scleral icterus. Cardiovascular: Normal rate. Abdomen: Soft, nontender, nondistended. LABORATORY DATA: White count 7, hematocrit is 33. His LFTs are now normal. ASSESSMENT AND PLAN: This is a 64-year-old gentleman admitted with gallstone pancreatitis. He seems to have resolved this and is tolerating clear liquids. I have discussed the options including observation over the weekend and cholecystectomy early next week versus scheduling as an outpatient a cholecystectomy next week. He wants to pursue outpatient cholecystectomy next week. Will continue on low fat, clear liquids, and avoiding alcohol until his surgery. We discussed worsening symptoms. He will call or present back to the ER if this develops. Otherwise, we will schedule him for next Wednesday for cholecystectomy. cc: Gaurav Liang MD
== END 2019-05-05 15:22 | disposition home or self-care (01) | DRG 440 ==
LOC: ED 06:08 → EDIPHOLD 06:09 → 3N 17:50
PROVIDERS: ATTEND Emergency Medicine

== ENCOUNTER 2019-05-12 10:14 | Day surgery (SDC) ==
[2019-05-12] MEDS ORDERED: FENTANYL ONE (10:43)
[2019-05-12] MEDS ORDERED: XYLOCAINE-MPF 2% ONE (10:44)
[2019-05-12] MEDS ORDERED: QUELICIN (DOSE) ONE (10:45)
[2019-05-12] MEDS ORDERED: SODIUM CHLORIDE 0.9% 10 ML ONE (10:46)
[2019-05-12] MEDS ORDERED: ZOFRAN ONE (10:46)
[2019-05-12] MEDS ORDERED: NORCURON ONE (10:46)
[2019-05-12] MEDS ORDERED: DIPRIVAN 1% ONE (10:48)
[2019-05-12] MEDS ORDERED: ROBINUL ONE (10:49)
[2019-05-12] MEDS ORDERED: REGLAN ONE (11:18)
[2019-05-12] MEDS ORDERED: LR 1,000 ML ONE ×3 (11:18→14:05)
[2019-05-12] MEDS ORDERED: KEFZOL 1 GM/D5W 2 GM/100 ML IVPB ONE (11:18)
[2019-05-12] MEDS ORDERED: PEPCID ONE (11:18)
[2019-05-12] MEDS ORDERED: SENSORCAINE-MPF 0.5%/EPI 1:200,000 ONE (12:00)
[2019-05-12] MEDS ORDERED: SODIUM CHLORIDE 0.9% ONE (12:00)
[2019-05-12] MEDS ORDERED: NEO-SYNEPHRINE ONE (13:19)
[2019-05-12] MEDS ORDERED: EPHEDRINE ONE (13:19)
--- NOTE | 2019-05-12 13:50 | Diag Imaging Result Doc PS360 ---
EXAM: OPERATIVE CHOLANGIOGRAM 05/12/2019 HISTORY: GALLSTONES TECHNIQUE: One view 122.6 seconds fluoroscopy time, 1.53 mGy COMMENT: There is no evidence of filling defects in the opacified portion of the common hepatic and common bile duct. The distal duct is not well demonstrated. IMPRESSION: No definite retained stones. Electronically signed by John Parra 05/12/2019 1:48 PM
[2019-05-12] MEDS: DILAUDID ONE ×4 (14:09→14:30)
[2019-05-12] MEDS: PHENERGAN ONE ×2 (14:19→14:22)
[2019-05-12] MEDS ORDERED: ZOFRAN IV PRN (15:16)
[2019-05-12] MEDS ORDERED: NORCO-7.5 PO PRN (15:17)
[2019-05-12] MEDS: LR 1,000 ML IV SCH (17:09)
[2019-05-12] MEDS: PERIDEX MT SCH (20:39)
--- NOTE | 2019-05-13 08:11 | OPERATIVE NOTE ---
PROCEDURE DATE: 05/12/2019 PREOPERATIVE DIAGNOSIS: Gallstone pancreatitis. POSTOPERATIVE DIAGNOSIS: Gallstone pancreatitis with choledocholithiasis. PROCEDURE PERFORMED: Laparoscopic cholecystectomy with cholangiogram. ESTIMATED BLOOD LOSS: 20 mL. SPECIMENS: Gallbladder. ANESTHESIA: General. DRAINS: Nico. INDICATIONS: A 64-year-old gentleman who had an episode of gallstone pancreatitis last week. He resolved this. LFTs normalized. He presented for cholecystectomy. OPERATIVE FINDINGS: 1. There was a dilated gallbladder with small stones within the lumen. 2. Interpretation of cholangiogram shows flow of contrast through the cystic duct into a prominent common bile duct, but no flow distally into the small bowel. Intrahepatic radicles appeared normal bilaterally consistent with retained gallstone. OPERATIVE NOTE: Risks, benefits, and alternatives were discussed with the patient. He consented to the procedure, seen in preop surgery where site was confirmed. Taken to the operating room and placed in supine position. General anesthesia induced without complication. All bony prominences were padded. His abdomen was prepped with chlorhexidine solution, draped in usual fashion. After time-out, a supraumbilical midline incision was made and carried down the fascia. The fascia was incised and the abdomen is entered in open controlled fashion. A 12 mm Josué trocar was placed. We then insufflated the abdomen to 15 mmHg, and placed three additional 5 mm trocars along the costal margin. The gallbladder was quite dilated, but we retracted this cephalad and gained adequate exposure. His liver was very soft and fatty, and there was a small capsular tear noted during retraction at the falciform ligament, but hemostasis was obtained spontaneously. Starting laterally and progressing medially we stripped down the peritoneum overlying the infundibulum- cystic duct junction, dissected this out widely establishing our critical view. A clip was placed on the gallbladder side and a ductotomy was made and the cholangiogram was performed. After noting the cholangiogram findings, we triply clipped the cystic duct after establishing exposure and divided the duct. We then began retracting cephalad and taking the gallbladder off the liver. The cystic artery was doubly clipped and divided. The gallbladder was removed intact, placed in the EndoCatch bag which did not fully fit given the size of the gallbladder. We irrigated copiously, placed the Nico drain in the gallbladder fossa given the distal obstruction. I re- examined the capsule tear at low insufflation pressure. Noted hemostasis. There was no bile leaking. Removed the remaining trocars. We made our fascial incision larger, brought the gallbladder out. I then closed this with 0 Vicryl sutures. Skin was closed with 4-0 Monocryl. Dermabond was applied. Counts correct. He was awoken, transferred to recovery. I spoke to family. Plan is to admit him for ERCP. cc: Gaurav Liang MD
[2019-05-13] MEDS: PERIDEX MT SCH (09:03)
[2019-05-13 09:59] LABS: ALB/GLOB RATIO 1.2; ALBUMIN 3.5 g/dL (3.5-5.0); DIRECT BILIRUBIN 0.2 mg/dL (0.00-0.20); TOTAL BILIRUBIN 0.64 mg/dL (0.20-1.00); TOTAL PROTEIN 6.4 g/dL (6.3-8.3)
[2019-05-13] MEDS: LR 1,000 ML IV SCH (11:08)
[2019-05-13 11:41] VITALS: BP 155/98
--- NOTE | 2019-05-13 18:47 | GASTROENTEROLOGY CONSULTATION ---
DATE: 05/13/2019 REASON FOR CONSULTATION: Possible request for ERCP status post cholecystectomy. HISTORY OF PRESENT ILLNESS: This is a 64-year-old male who had an episode of gallstone pancreatitis last week. After that resolved came in for outpatient laparoscopic cholecystectomy. He had laparoscopic cholecystectomy with cholangiogram on 05/12/[address] Liang. Operative findings showed a dilated common bile duct with small stones within the lumen. Interpretation of cholangiogram showed flow of contrast through the cystic duct into the prominent common bile duct but there was no flow distally into the small bowel. Intrahepatic radicles appeared normal bilaterally consistent with retained gallstone. Patient was admitted for evaluation for possible ERCP. Today patient denies abdominal pain. His liver function tests showed total bilirubin 0.64, direct bilirubin 0.20, AST 71, ALT 76, alkaline phosphatase 101. Patient has been seen by Dr. Matthews today. Again, patient currently denies abdominal pain. PAST MEDICAL HISTORY: Hypertension, history of congestive heart failure, history of atrial fibrillation. PAST SURGICAL HISTORY: Recent laparoscopic cholecystectomy on 05/12/2019, back surgeries x3, right hip replacement. SOCIAL HISTORY: Former smoker. No reported alcohol use. OBJECTIVE: Temperature 98.3 degrees, pulse 87, respirations 16, blood pressure 155/98. General: Patient is awake and alert in no acute distress. HEENT: Normocephalic, atraumatic. Pupils equal, round, reactive to light. Sclerae nonicteric. Respiratory: Lung sounds essentially clear. Abdomen: With some bruising noted. Laparoscopic incisions intact. He does have a bruise around incisions and lower abdomen mildly tender with palpation postoperatively. Neurologic: Cranial nerves 2-12 grossly intact. LABORATORY: Liver function test today showed total bilirubin 0.64, direct bilirubin 0.20, AST 71, ALT 76, alkaline phosphatase 101. ASSESSMENT AND PLAN: 1. Recent laparoscopic cholecystectomy. Cholangiogram showed flow through the cystic duct into the prominent common bile duct but no flow distally into the small bowel. The patient denies abdominal pain today. His liver function tests are only mildly elevated. Dr. Castillo has spoken with Dr. Matthews who is strong nitric operator for [facility]. I believe the plan will be for patient to be discharged home. Recommend he have repeat liver function test on Wednesday and then follow with Dr. Castillo in the office Wednesday afternoon. Further plans to be made according to his symptoms and lab work regarding whether he needs an ERCP. I have discussed the plan with the patient. He voices understanding. I have discussed this case with Dr. Castillo. Further plans to be made as needed. Thank you for this consultation. Dictated by BASSAM Fofana for Alfonzo Castillo MD cc: BASSAM Taylor MD R. Tyler Harney, MD
--- NOTE | 2019-05-14 03:28 | GENERAL SURGERY PROGRESS NOTE ---
DATE: 05/13/2019 SUBJECTIVE: The patient is doing well. He has some intermittent abdominal pain, nothing that is uncontrollable. He has no nausea or vomiting. OBJECTIVE: Vital signs: He is afebrile. Vital signs are stable. General: He is awake, alert, oriented x3. No acute distress. Gastrointestinal: Abdomen is soft, appropriately tender. Incisional dressings clean and dry. LABORATORY: AST 71, ALT 76, alkaline phosphatase 101, total bilirubin 0.6. ASSESSMENT AND PLAN: A 64-year-old male postoperative day 1 laparoscopic cholecystectomy. The cholangiogram was abnormal, however, clinically he appears to be doing well. We are awaiting a GI evaluation. If the ERCP is not pursued, then we will discharge him to follow up with Dr. Liang next week. cc: MD Gaurav Goyal MD
== END 2019-05-13 15:06 | disposition home or self-care (01) ==
LOC: OR 10:14 → 4N 10:14 → OR 05-13 15:06
PROVIDERS: ATTEND Surgery